=== PATIENT | male | born 2000 | race Caucasian/White ===

== ENCOUNTER 2021-11-03 13:57 | Outpatient (CLI) | payer OTHER, SELFPAY ==
[2021-11-03 15:56] LABS: SARS-CoV-2 RNA PCR Positive (Negative)
== END 2021-11-03 13:58 | disposition home or self-care (01) ==
LOC: CHSLAB 14:05
PROVIDERS: PCP Physician Assistant; Visit Provider Physician Assistant
DX: U07.1 COVID-19 (principal)
CPT/HCPCS: C9803; U0003; U0005

== ENCOUNTER 2022-03-16 23:10 | Emergency (ER) | payer OTHER, SELFPAY ==
[2022-03-16 23:10] VITALS: BP 122/67; PULSE 65; RESP 16; TEMP 36.2; O2SAT 100
--- NOTE | 2022-03-16 23:18 | ED.OVERDOSE ---
HPI - Overdose General Chief Complaint: Overdose Stated Complaint: overdose Time Seen by Provider: 03/16/22 23:18 History of Present Illness HPI Narrative: 21-year-old male patient is brought to the ER by EMS from his home after he took some extra pills of Xanax today. The patient states that he normally takes the, 1 mg tablet, 2 to 3 times a day. He states that he starts taking 2 tablets in the morning and does only way he can function. Patient states that today he was having a little bit more on his plate in terms of family stress and he took [address] home around 3:00 p.m.. Patient also states that after he walked home around 9:00 p.m. he was still dealing with some family stress and he poured a few of the tablets in his hand and does not recall how many but he took them. He denies any vomiting. He denies any headache or chest pain. He denies any difficulty breathing. He states that his head feels a little heavy but feels like he could still function and walk. According to his girlfriend the patient the probably took 10 tablets today over the whole day. . In addition to Xanax the patient is on Fioricet and dicyclomine and thyroxine. He does admit to smoking. But he denies any alcohol or recreational drugs . Patient states that he took the medications intentionally to get over the stress but denies any intentional harm to himself. He denies that he was tried to kill himself. He stresses the fact that he took it only to get through the situation of stress at home. Patient denies any past medical history of suicidal attempt. He states that he sees Dr. Humphreys and does not want to see a counselor and does not usually do well with talking to anybody. Intent: wanted to go to sleep and wanted to escape Context: Intentional Overdose: relationship problems Related Data Home Medications Medication Instructions Recorded Confirmed alprazolam 1 mg PO TID PRN 03/17/22 03/17/22 hsathlexii-cneimnvkmd-wrt-cod 1 cap PO PRN PRN 03/17/22 03/17/22 diclofenac sodium 75 mg PO DAILY 03/17/22 03/17/22 eltrombopag [Promacta] 50 mg PO DAILY 03/17/22 03/17/22 fluoxetine 40 mg PO DAILY 03/17/22 03/17/22 levothyroxine 50 mcg PO DAILY 03/17/22 03/17/22 omeprazole 20 mg PO DAILY 03/17/22 03/17/22 ondansetron HCl 4 mg PO PRN PRN 03/17/22 03/17/22 sumatriptan succinate 100 mg PO PRN PRN 03/17/22 03/17/22 Allergies Allergy/AdvReac Type Severity Reaction Status Date / Time No Known Allergies Allergy Mild Unverified 01/06/07 07:45 OMNISEF Allergy Unknown Unknown Uncoded 03/16/22 23:34 Review of Systems Review of Systems: All systems reviewed & are unremarkable except as noted in HPI and below PMFSH Past Medical History Medical History Anxiety and depression Hypothyroidism IBS (irritable bowel syndrome) Migraine Social History Social History Substance use type: does not use and prescription drug Exam Const: General: healthy appearing, no acute distress and alert Nutritional Appearance: well nourished Orientation/consciousness: patient oriented x3 Limitations: no limitations, No behavioral limitations, No physical limitations and No other limitations HENMT: Head: normal to inspection Ears: external ears normal, TM's normal bilaterally and EAC's normal General nose exam: Normal external nose present and Normal nares present Face and sinus: normal facial exam and sinuses nontender Mouth: Yes Normal oral and palatal mucosa present, Yes lip normal and Yes moist mucous membranes Teeth and gingiva: dentition normal Throat: posterior oropharynx normal and uvula midline Eyes: Conjunctivae: conjunctivae normal Pupils: Equal, round and reactive pupils present EOM: EOMs intact bilaterally Neck: Neck: normal visual inspection and no lymphadenopathy Chest: Chest palpation & inspection: normal inspection of the chest Resp: Effort & Inspe
[2022-03-16 23:19] VITALS: PULSE 65; RESP 15; O2SAT 100
[2022-03-16 23:30] VITALS: PULSE 70; RESP 18; O2SAT 98
[2022-03-16 23:31] VITALS: BP 129/87; PULSE 69; RESP 12; O2SAT 100
--- NOTE | 2022-03-16 23:32 | ECG_ITS ---
Measurements Intervals [place] Rate: 64 P: 65 ND: 152 QRS: 43 QRSD: 95 T: 30 QT: 400 QTc: 415 Interpretive Statements SINUS RHYTHM POSSIBLE LEFT ATRIAL ENLARGEMENT INCOMPLETE RIGHT BUNDLE BRANCH BLOCK BORDERLINE ECG Electronically Signed On 03-17-2022 6:43:53 CDT by Wil Conti D.O.
[2022-03-16] MEDS: SODIUM CHLORIDE 0.9% IV 1,000 ML 150 ML IV CONT (23:51)
[2022-03-16 23:53] VITALS: PULSE 71; O2SAT 93
[2022-03-16 23:54] VITALS: BP 114/82; PULSE 70; RESP 16; O2SAT 97
--- NOTE | 2022-03-16 23:57 | PC.NURSE ---
mother and girlfriend are at bedside. pt is inquiring about a phone yoga coordinator. pt and visitors are aware of plan of care and per poison control to monitor for 4-6 hours post arrival to er. nad noted. vss. will continue to monitor.
[2022-03-16 23:59] LABS: Base Excess ABG 0.3 mmol/L (0-2); Basophils Absolute Auto 0.04 K/mm3 (0.00-0.10); Basophils Percent Auto 0.4 % (0.0-1.0); Eosinophils Absolute Auto 0.17 K/mm3 (0.02-0.50); Eosinophils Percent Auto 1.6 % (1.0-6.0); HCO3 ABG 25.6 mmol/L (23-29); Hematocrit 45.7 % (40.0-54.0); Hemoglobin 15.5 g/dL (14.0-18.0); Immature Granulocyte Absolute 0.04 K/mm3 (0.00-0.00); Immature Granulocyte Percent A 0.4 % (0.0-0.0); Lymphocytes Absolute Auto 2.35 K/mm3 (1.10-4.50); Lymphocytes Percent Auto 21.7 % (18.0-42.0); Mean Corpuscular HGB Conc 33.9 g/dL (32.0-36.0); Mean Corpuscular Hemoglobin 33.4 pg (27.0-31.0); Mean Corpuscular Volume 98.5 fL (78.0-102.0); Mean Platelet Volume 10.5 fl (8.7-11.0); Monocytes Absolute Auto 0.67 K/mm3 (0.10-0.90); Monocytes Percent Auto 6.2 % (2.0-11.0); Neutrophils Absolute Auto 7.6 K/mm3 (1.7-7.2); Neutrophils Percent Auto 69.7 % (50.0-70.0); Oxygen Content ABG 19.6 %vol (16.0-22.0); Oxygen Saturation ABG 90.1 % (95-97); Oxyhemoglobin 89.4 % (94-100); PCO2 ABG 43.5 mmHg (35-45); PO2 ABG 63.4 mmHg (80-90); Platelet Count Result 164 K/mm3 (150-420); Red Blood Count 4.64 M/mm3 (4.70-6.10); Red Cell Distribution Width 11.4 % (11.6-14.4); Total Hemoglobin 15.6 g/dL (12.0-18.0); White Blood Count 10.8 K/mm3 (4.8-10.8); pH ABG 7.39 (7.35-7.45)
[2022-03-17] VITALS (61 sets, daily range): BP systolic 98–139; BP diastolic 55–87; PULSE 55–83; RESP 0–28; TEMP 36.2; O2SAT 85–100
[2022-03-17] LABS: Modified Allen's Test Pass; Site Drawn LEFT RADIAL
[2022-03-17 00:01] LABS: Device ROOM AIR
[2022-03-17 00:07] LABS: Add Urine Microscopic? NO; Appearance Urine Clear (Clear); Bilirubin Urine Negative (Negative); Blood Urine Negative (Negative); Color Urine Yellow (Yellow); Glucose Urine UA Negative (Negative); Ketones Urine Negative (Negative); Leukocyte Esterase Ur Negative (Negative); Nitrate Urine Negative (Negative); Protein Urine Negative (Negative); Urobilinogen Urine 0.2 mg/dL (0.2-1.0); pH Urine 6.5 (5.0-8.0)
[2022-03-17 00:16] LABS: Amphetamine Screen Urine Negative (Negative); Barbiturate Screen Urine Positive (Negative); Benzodiazepines Screen Urine Positive (Negative); Cannabinoid Screen Urine Negative (Negative); Cocaine Screen Urine Negative (Negative); Methadone Screen Urine Negative (Negative); Opiate Screen Urine Positive (Negative); Phencyclidine Screen Urine Negative (Negative)
[2022-03-17 00:20] LABS: Acetaminophen < 2 ug/mL (10-30); Alanine Aminotransferase 17 U/L (16-63); Albumin Level 3.7 g/dL (3.4-5.0); Alkaline Phosphatase 56 U/L (46-116); Anion Gap 7 mmol/L (8-16); Aspartate Amino Transferase 13 U/L (15-37); Bilirubin,Total 0.5 mg/dL (0.00-1.00); Blood Urea Nitrogen 10 mg/dL (7-18); Calcium 9.2 mg/dL (8.5-10.1); Carbon Dioxide 31 mmol/L (21-32); Chloride 100 mmol/L (98-108); Estimated CRCL calculation 112 ml/min; Estimated Glomerular Filt Rate > 60; Ethanol < 3 mg/dL (0-6); Free T4 Free Thyroxine 1.03 ng/dL (0.76-1.46); Glucose 86 mg/dL (70-99); Magnesium 2.1 mg/dL (1.8-2.4); Osmolality Calculated 284 mOsm/kg (285-295); Potassium 4.1 mmol/L (3.5-5.1); Salicylate < 0.2 mg/dL (2.8-20.0); Sodium 138 mmol/L (136-145); Total Protein 7.7 g/dL (6.4-8.2)
--- NOTE | 2022-03-17 00:28 | PC.NURSE ---
03/16/2022 PT IS AWAKE, ALERT AND TALKING WITH ERP AND RN. PT IS ABLE TO PROVIDE FULL HX. PT DENIES SI, DENIES ANY PAST ATTEMPTS. PT REPORTS HE DOES TAKE MEDICATION AND HAS OUTPT TREATMENT. NAD NOTED. VSS. GIRLFRIEND IN WAITING ROOM.
--- NOTE | 2022-03-17 00:33 | PC.NURSE ---
03/16/2022 2330- SPOKE WITH RAMONE FROM POISON CONTROLL. CASE # [id number]. TOX SCREEN, LABS, SUPPORTIVE CARE. HYPOTENSION MAY RESULT. DO NOT ADMINISTER RAMAZOCON, MAY GIVE NARCAN IF NEEDED. TO OBSERVE FOR 4-6 HOURS POST ARRIVAL TO ER.
--- NOTE | 2022-03-17 00:45 | PC.NURSE ---
PT IS RESTING ON STRETCHER, AROUSES TO VERBAL STIMULI. MOTHER HAS LEFT, SIG OTHER AT BEDSIDE. VSS PER MONITOR. NAD NOTED. WILL CONTINUE TO MONITOR.
--- NOTE | 2022-03-17 00:49 | PC.NURSE ---
POISON CONTROL UPDATED AT THIS TIME. NO FURTHER ORDERS, TO CONTINUE TO OBSERVE. WILL RETURN CALL FOR STATUS UPDATE PRIOR TO DC.
--- NOTE | 2022-03-17 02:22 | PC.NURSE ---
0130 PT IS SLEEPING ON STRETCHER WITH SIG OTHER AT BEDSIDE. NAD NOTED. VSS PER MONITOR. PT AROUSES TO VERBAL STIMULI. WILL CONTINUE TO MONITOR.
--- NOTE | 2022-03-17 03:48 | PC.NURSE ---
NO CHANGE IN PT STATUS AT THIS TIME. SIG OTHER REMAINS AT BEDSIDE. NAD NOTED. VSS. WILL CONTINUE TO MONITOR. PT AROUSES TO VERBAL
--- NOTE | 2022-03-17 04:30 | PC.NURSE ---
no change in pt status. will continue to monitor.
--- NOTE | 2022-03-17 05:46 | PC.NURSE ---
no change in status. sig other remains at bedside. will continue to monitor.
--- NOTE | 2022-03-17 06:51 | PC.NURSE ---
ERP REASSESSED PT, WHEN PT IS FULLY AWAKE HE MAY BE DC HOME. PT DOES AROUSE TO VERBAL STIMULI, HOWEVER DOES RETURN TO SLEEP. SIG OTHER REPORTS HE IS NORMALLY DIFFICULT TO WAKE. NAD NOTED. VSS. WILL CONTINUE TO MONITOR.
== END 2022-03-17 07:10 | disposition home or self-care (01) ==
PROVIDERS: Emergency Provider Emergency Medicine; PCP Physician Assistant
DX: F41.9 Anxiety disorder, unspecified (principal); F32.A Depression, unspecified; T42.4X1A Poisoning by benzodiazepines, accidental (unintentional), initial encounter
CPT/HCPCS: 36415; 36600; 80053; 80307; 81003; 82805; 83735; 84439; 85025; 93005; 96360; 96361; 99284; J7030